=== PATIENT | female | born 1950 | race Caucasian/White ===

== ENCOUNTER 2017-04-29 11:51 | Emergency (ER) | payer BC, MEDICARE ==
[2017-04-29] MEDS ORDERED: SODIUM CHLORIDE 0.9% 1,000 ML IV STA ×2 (11:57)
[2017-04-29] MEDS ORDERED: RX INFO: IV CONTRAST WAS GIVEN 1 EACH MISC MISCELLANE PRN (11:57)
[2017-04-29 12:20] LABS: Glucose,Whole Blood 104 mg/dL (75-99)
[2017-04-29 12:33] LABS: Basophils # (A) 0.1 k/uL (0-0.2); Basophils % (A) 1 %; Eosinophils # (A) 0.3 k/uL (0-0.7); Eosinophils % (A) 4 %; HCT 42.7 % (34.0-46.0); HGB 14.5 gm/dL (11.4-16.0); Lymphocytes # (A) 2.2 k/uL (1.0-4.8); Lymphocytes % (A) 29 %; MCH 29.9 pg (25.0-35.0); MCHC 33.9 g/dL (31.0-37.0); MCV 88.2 fL (80.0-100.0); Mean Platelet Volume 6.6; Monocytes # (A) 0.3 k/uL (0-1.0); Monocytes % (A) 4 %; Neutrophils # (A) 4.6 k/uL (1.3-7.7); Neutrophils % (A) 60 %; Platelet Count 355 k/uL (150-450); RBC 4.84 m/uL (3.80-5.40); RDW 12.8 % (11.5-15.5); WBC 7.6 k/uL (3.8-10.6)
[2017-04-29 12:40] LABS: ALT 37 U/L (9-52); AST 36 U/L (14-36); Albumin 4.6 g/dL (3.5-5.0); Alkaline Phosphatase 101 U/L (38-126); Anion Gap 14 mmol/L; Blood Urea Nitrogen 10 mg/dL (7-17); Calcium 9.7 mg/dL (8.4-10.2); Carbon Dioxide 25 mmol/L (22-30); Chloride 104 mmol/L (98-107); Glucose 98 mg/dL (74-99); Sodium 143 mmol/L (137-145); Total Bilirubin 0.7 mg/dL (0.2-1.3); Total Protein 7.4 g/dL (6.3-8.2)
--- NOTE | 2017-04-29 12:45 | ED ---
General Adult HPI - General Chief complaint: Fall Stated complaint: Fall-Head Injury Time Seen by Provider: 04/29/17 11:57 Source: patient, RN notes reviewed, old records reviewed Mode of arrival: EMS Limitations: no limitations - History of Present Illness Initial comments: This is a 66-year-old female to the ER for evaluation. Patient brought in for evaluation regarding head injury. Patient denies blood thinners. This was out for a walk with friend, she is on the ice to backwards hitting the back of her head. Positive loss of consciousness. Patient states that she has mild amnesia around the event. Patient currently is awake and alert and knows where she is. History also obtained from patient's friend who is at bedside - Related Data Home Medications Medication Instructions Recorded Confirmed Cholecalciferol [Vitamin D3] 1,000 unit PO HS 04/29/17 04/29/17 Multivitamins, Thera [Multivitamin 1 tab PO HS 04/29/17 04/29/17 (formulary)] Omeprazole Magnesium [PriLOSEC OTC] 20 mg PO DAILY 04/29/17 04/29/17 Allergies Allergy/AdvReac Type Severity Reaction Status Date / Time No Known Allergies Allergy Verified 04/29/17 12:37 Review of Systems ROS Statement: Those systems with pertinent positive or pertinent negative responses have been documented in the HPI. ROS Other: All systems not noted in ROS Statement are negative. Past Medical History Additional Past Medical History / Comment(s): irreg heart rate at times per pt History of Any Multi-Drug Resistant Organisms: None Reported Past Surgical History: Cholecystectomy, Orthopedic Surgery Additional Past Surgical History / Comment(s): shoulder Smoking Status: Never smoker Past Alcohol Use History: None Reported Past Drug Use History: None Reported General Exam Limitations: no limitations General appearance: alert, in no apparent distress Head exam: Present: atraumatic, normocephalic, normal inspection Eye exam: Present: normal appearance, PERRL, EOMI. Absent: scleral icterus, conjunctival injection, periorbital swelling ENT exam: Present: normal exam, mucous membranes moist Neck exam: Present: normal inspection. Absent: tenderness, meningismus, lymphadenopathy Respiratory exam: Present: normal lung sounds bilaterally. Absent: respiratory distress, wheezes, rales, rhonchi, stridor Cardiovascular Exam: Present: regular rate, normal rhythm, normal heart sounds. Absent: systolic murmur, diastolic murmur, rubs, gallop, clicks GI/Abdominal exam: Present: soft, normal bowel sounds. Absent: distended, tenderness, guarding, rebound, rigid Extremities exam: Present: normal inspection, full ROM, normal capillary refill. Absent: tenderness, pedal edema, joint swelling, calf tenderness Back exam: Present: normal inspection Neurological exam: Present: alert, oriented X3, CN II-XII intact Psychiatric exam: Present: normal affect, normal mood Skin exam: Present: warm, dry, intact, normal color. Absent: rash Course Vital Signs 04/29/17 04/29/17 04/29/17 11:59 13:21 14:38 Temperature 97.8 F 98.4 F Pulse Rate 109 H 93 89 Respiratory 18 17 16 Rate Blood Pressure 188/80 137/76 152/67 O2 Sat by Pulse 96 99 97 Oximetry - Reevaluation(s) Reevaluation #1: Patient is without event or complaints here in the emergency room EKG Findings - EKG Comments: EKG Findings:: EKG shows sinus rhythm rate of 86, pO2 12, QRS 84, QTC 457 Medical Decision Making - Medical Decision Making 66 female the ER for evaluation of syncopal event with fall and head injury. Patient is multiple imaging done including CTA CT brain chest x-ray labwork are all negative. - Lab Data Result diagrams: 04/29/17 12:17 04/29/17 12:17 Lab Results 04/29/17 04/29/17 04/29/17 Range/Units 12:01 12:17 12:17 WBC 7.6 (3.8-10.6) k/uL RBC 4.84 (3.80-5.40) m/uL Hgb 14.5 (11.4-16.0) gm/dL Hct 42.7 (34.0-46.0) % MCV 88.2 (80.0-100.0) fL MCH 29.9 (25.0-35.0) pg MCHC 33.9 (31.0-37.0) g/dL RDW 12.8 (11.5-15.5) % Plt Count 355 (150-450) k/uL Neutrophils % 60 % Lymphocytes % 29 % Monocytes % 4 % Eosinophils % 4 % Basophils % 1 % Neutrophils # 4.6 (1.3-7.7) k/uL Lymphocytes # 2.2 (1.0-4.8) k/uL Monocytes # 0.3 (0-1.0) k/uL Eosinophils # 0.3 (0-0.7) k/uL Basophils # 0.1 (0-0.2) k/uL PT (9.0-12.0) sec INR (<1.2) APTT (22.0-30.0) sec Sodium (137-145) mmol/L Potassium (3.5-5.1) mmol/L Chloride (98-107) mmol/L Carbon Dioxide (22-30) mmol/L Anion Gap mmol/L BUN (7-17) mg/dL Creatinine (0.52-1.04) mg/dL Est GFR (MDRD) Af Amer (>60 ml/min/1.73 sqM) Est GFR (MDRD) Non-Af (>60 ml/min/1.73 sqM) Glucose (74-99) mg/dL POC Glucose (mg/dL) 104 H (75-99) mg/dL POC Glu Improvement Engineer ID Jamaal Osborn Calcium (8.4-10.2) mg/dL Total Bilirubin (0.2-1.3) mg/dL AST (14-36) U/L ALT (9-52) U/L Alkaline Phosphatase (38-126) U/L Total Creatine Kinase 76 (30-135) U/L CK-MB (CK-2) 1.7 (0.0-2.4) ng/mL CK-MB (CK-2) Rel Index 2.2 Troponin I <0.012 (0.000-0.034) ng/mL Total Protein (6.3-8.2) g/dL Albumin (3.5-5.0) g/dL Urine Color Urine Appearance (Clear) Urine pH (5.0-8.0) Ur Specific [place] (1.001-1.035) Urine Protein (Negative) Urine Glucose (UA) (Negative) Urine Ketones (Negative) Urine Blood (Negative) Urine Nitrite (Negative) Urine Bilirubin (Negative) Urine Urobilinogen (<2.0) mg/dL Ur Leukocyte Esterase (Negative) 01/29/18 01/29/18 01/29/18 Range/Units 12:17 12:17 13:40 WBC (3.8-10.6) k/uL RBC (3.80-5.40) m/uL Hgb (11.4-16.0) gm/dL Hct (34.0-46.0) % MCV (80.0-100.0) fL MCH (25.0-35.0) pg MCHC (31.0-37.0) g/dL RDW (11.5-15.5) % Plt Count (150-450) k/uL Neutrophils % % Lymphocytes % % Monocytes % % Eosinophils % % Basophils % % Neutrophils # (1.3-7.7) k/uL Lymphocytes # (1.0-4.8) k/uL Monocytes # (0-1.0) k/uL Eosinophils # (0-0.7) k/uL Basophils # (0-0.2) k/uL PT 9.7 (9.0-12.0) sec INR 1.0 (<1.2) APTT 22.9 (22.0-30.0) sec Sodium 143 (137-145) mmol/L Potassium 4.0 (3.5-5.1) mmol/L Chloride 104 (98-107) mmol/L Carbon Dioxide 25 (22-30) mmol/L Anion Gap 14 mmol/L BUN 10 (7-17) mg/dL Creatinine 0.70 (0.52-1.04) mg/dL Est GFR (MDRD) Af Amer >60 (>60 ml/min/1.73 sqM) Est GFR (MDRD) Non-Af >60 (>60 ml/min/1.73 sqM) Glucose 98 (74-99) mg/dL POC Glucose (mg/dL) (75-99) mg/dL POC Glu Improvement Engineer ID Calcium 9.7 (8.4-10.2) mg/dL Total Bilirubin 0.7 (0.2-1.3) mg/dL AST 36 (14-36) U/L ALT 37 (9-52) U/L Alkaline Phosphatase 101 (38-126) U/L Total Creatine Kinase (30-135) U/L CK-MB (CK-2) (0.0-2.4) ng/mL CK-MB (CK-2) Rel Index Troponin I (0.000-0.034) ng/mL Total Protein 7.4 (6.3-8.2) g/dL Albumin 4.6 (3.5-5.0) g/dL Urine Color Light Yellow Urine Appearance Clear (Clear) Urine pH 6.5 (5.0-8.0) Ur Specific [place] 1.022 (1.001-1.035) Urine Protein Negative (Negative) Urine Glucose (UA) Negative (Negative) Urine Ketones Negative (Negative) Urine Blood Negative (Negative) Urine Nitrite Negative (Negative) Urine Bilirubin Negative (Negative) Urine Urobilinogen <2.0 (<2.0) mg/dL Ur Leukocyte Esterase Negative (Negative) Disposition Clinical Impression: Fall, Head injury Disposition: HOME SELF-CARE Condition: Good Instructions: Concussion (ED), Head Injury (ED) Referrals: Nguyen Calhoun DO [Primary Care Provider] - 1-2 days
[2017-04-29 12:46] LABS: Partial Thromboplastin Time 22.9 sec (22.0-30.0); Prothrombin Time 9.7 sec (9.0-12.0)
[2017-04-29 12:57] LABS: Creatine Kinase 76 U/L (30-135)
[2017-04-29 13:09] LABS: Creatine Kinase MB 1.7 ng/mL (0.0-2.4)
--- NOTE | 2017-04-29 13:15 | CT ---
EXAMINATION TYPE: CT brain wo con for TPA DATE OF EXAM: 04/29/2017 HISTORY: Neurodeficits per order. CT DLP: Automated Exposure Control for Dose Reduction was Utilized. TECHNIQUE: CT scan of the head is performed without contrast. COMPARISON: None. FINDINGS: There is no acute intracranial hemorrhage or midline shift identified. There is diffuse v entricular and sulcal prominence consistent with diffuse age-related cerebral atrophy. There is low- attenuation in the periventricular white matter consistent with chronic small vessel ischemic change. The globes are intact and the visualized sinuses are clear. IMPRESSION: No acute intracranial hemorrhage or midline shift. There is mild diffuse age-related ce rebral atrophy noted.
[2017-04-29 13:27] LABS: Troponin I <0.012 ng/mL (0.000-0.034)
--- NOTE | 2017-04-29 13:47 | CT ---
EXAMINATION TYPE: CT angio head neck DATE OF EXAM: 04/29/2017 HISTORY: Memory loss and weakness COMPARISON: NONE CT DLP: 246.8 mGycm. Automated Exposure Control for Dose Reduction was Utilized. TECHNIQUE: CTA scan of the head and neck are performed with IV Contrast, patient injected with 65 mL of Omnipaque 350, axial images are obtained, coronal and sagittal reformatted images are reviewed. T hree-D reconstructed images are created on an independent workstation and reviewed. FINDINGS: Carotid/Vascular Structures: There is minimal noncalcified plaque in aortic arch. There is normal thr ee-vessel origin from the aortic arch without significant plaque or stenosis. The right common caroti d artery shows normal origin from the right brachiocephalic artery. There is tortuous course to the p roximal to mid right common carotid artery. No significant plaque or stenosis is seen including at le trent of right carotid bulb. Remainder of right internal carotid artery shows no significant plaque or stenosis. There is patent right external carotid artery without significant plaque or stenosis. There is tortuous course to the left common carotid artery without significant plaque or stenosis inc luding the carotid bulb. There is patent external carotid artery without significant plaque or stenos is. Left internal carotid artery shows no significant plaque or stenosis. There is dominant left vertebral artery. Vertebral arteries are patent to basilar junction. There is no significant focal stenosis or interval change in the posterior circulation. There are hypoplastic posterior communicating arteries felt present bilaterally. Images of the anterior circulation show pa tent small segment anterior communicating artery without significant stenosis or aneurysmal change. Other: There is mild underlying emphysematous change. There is moderate posterior biapical pleural/pa renchymal scarring. There is subcentimeter scar opacity right upper lung axial image 15. There is mil d to moderate disc space narrowing with grade 1 retrolisthesis of C5 on C6. IMPRESSION: 1. No significant focal stenosis in common or internal carotid arteries bilaterally. 2. No aneurysmal change or significant stenosis at level of clark's point of [place].
[2017-04-29] MEDS ORDERED: MORPHINE SULFATE 2 MG/ML SYRINGE IVP ONE (13:48)
[2017-04-29] MEDS ORDERED: ONDANSETRON 4 MG/2 ML VIAL IVP STA (13:58)
[2017-04-29 14:04] LABS: Appearance,Urine Clear (Clear); Bilirubin,Urine Negative (Negative); Blood,Urine Negative (Negative); Color,Urine Light Yellow; Glucose,Urine (UA) Negative (Negative); Ketones,Urine Negative (Negative); Leukocyte Esterase,Urine Negative (Negative); Nitrite,Urine Negative (Negative); PH, Urine 6.5 (5.0-8.0); Protein,Urine Negative (Negative); Specific Gravity,Urine 1.022 (1.001-1.035); Urobilinogen,Urine <2.0 mg/dL (<2.0)
[2017-04-29 14:39] VITALS: BP 152/67; PULSE 89; RESP 16; TEMP 98.4
== END 2017-04-29 14:39 | disposition home or self-care (01) ==
LOC: EC 11:51
DX: S09.90XA Unspecified injury of head, initial encounter (principal); Z79.899 Other long term (current) drug therapy; W00.0XXA Fall on same level due to ice and snow, initial encounter; Y93.01 Activity, walking, marching and hiking; Y92.89 Other specified places as the place of occurrence of the external cause
CPT/HCPCS: 99285 ×2; 96374 ×2; 96375 ×2; 96361 ×2; 36415; 93005; 80053; 82550; 82553; 84484; 85025; 85610; 85730; 81003; 70496; 70450; 70498; Q9967; J2405; J2270

== ENCOUNTER 2019-04-13 07:30 | Emergency (ER) | payer MEDICARE ==
[2019-04-13 07:48] VITALS: TEMP 98
--- NOTE | 2019-04-13 08:06 | ED ---
General Adult HPI - General Chief complaint: Urogenital Stated complaint: blood in urine/poss uti Time Seen by Provider: 04/13/19 07:50 Source: patient, family, RN notes reviewed Mode of arrival: ambulatory Limitations: no limitations - History of Present Illness Initial comments: Patient is a pleasant 68-year-old female presenting to the emergency Department with dysuria. Onset of symptoms was yesterday. Patient did have similar symptoms once years ago associated with urinary tract infection. Patient has urinary frequency and urgency. Patient also is only urinating small amounts. Patient has noticed some hematuria this morning. Patient has mild suprapubic discomfort, no back pain. No nausea vomiting. No fever. - Related Data Home Medications Medication Instructions Recorded Confirmed Cholecalciferol [Vitamin D3] 1,000 unit PO HS 04/29/17 04/29/17 Multivitamins, Thera [Multivitamin 1 tab PO HS 04/29/17 04/29/17 (formulary)] Omeprazole Magnesium [PriLOSEC OTC] 20 mg PO DAILY 04/29/17 04/29/17 Previous Rx's Medication Instructions Recorded Phenazopyridine [Pyridium] 100 mg PO TID PRN #5 tablet 04/13/19 Sulfamethox-Tmp 800-160Mg [Bactrim 1 each PO Q12HR #19 tab 04/13/19 DS 800-160 mg] Allergies Allergy/AdvReac Type Severity Reaction Status Date / Time No Known Allergies Allergy Verified 04/13/19 07:43 Review of Systems ROS Statement: Those systems with pertinent positive or pertinent negative responses have been documented in the HPI. ROS Other: All systems not noted in ROS Statement are negative. Constitutional: Denies: fever Gastrointestinal: Reports: as per HPI. Denies: nausea, vomiting Past Medical History Additional Past Medical History / Comment(s): irreg heart rate at times per pt History of Any Multi-Drug Resistant Organisms: None Reported Past Surgical History: Appendectomy, Cholecystectomy, Orthopedic Surgery Additional Past Surgical History / Comment(s): shoulder Past Psychological History: No Psychological Hx Reported Smoking Status: Never smoker Past Alcohol Use History: None Reported Past Drug Use History: None Reported General Exam Limitations: no limitations General appearance: alert, in no apparent distress Head exam: Present: normocephalic Eye exam: Present: normal appearance Neck exam: Present: normal inspection Respiratory exam: Present: normal lung sounds bilaterally Cardiovascular Exam: Present: regular rate, normal rhythm Expanded Peripheral pulses: 2+: Posterior Tibialis (R), Posterior Tibialis (L), Dorsalis Pedis (R), Dorsalis Pedis (L) GI/Abdominal exam: Present: soft, tenderness (Normal suprapubic tenderness) Extremities exam: Present: normal inspection. Absent: pedal edema, calf tenderness Neurological exam: Present: alert Psychiatric exam: Present: normal affect, normal mood Skin exam: Present: normal color Course Vital Signs 04/13/19 04/13/19 04/13/19 07:44 07:47 08:47 Temperature 98.0 F Pulse Rate 101 H 98 Respiratory 18 20 20 Rate Blood Pressure 149/90 132/87 O2 Sat by Pulse 98 95 Oximetry 04/13/19 09:00 Temperature Pulse Rate 98 Respiratory 20 Rate Blood Pressure 132/87 O2 Sat by Pulse 95 Oximetry Medical Decision Making - Medical Decision Making Patient reevaluated and updated. - Lab Data Lab Results 04/13/19 Range/Units 08:00 Urine Color Light Yellow Urine Appearance Clear (Clear) Urine pH 6.5 (5.0-8.0) Ur Specific [place] 1.003 (1.001-1.035) Urine Protein Negative (Negative) Urine Glucose (UA) Negative (Negative) Urine Ketones Negative (Negative) Urine Blood Large H (Negative) Urine Nitrite Negative (Negative) Urine Bilirubin Negative (Negative) Urine Urobilinogen <2.0 (<2.0) mg/dL Ur Leukocyte Esterase Large H (Negative) Urine RBC 3 (0-5) /hpf Urine WBC 170 H (0-5) /hpf Ur Squamous Epith Cells <1 (0-4) /hpf Urine Bacteria Occasional H (None) /hpf Urine Mucus Rare H (None) /hpf Disposition Clinical Impression: Urinary tract infection Disposition: HOME SELF-CARE Condition: Stable Instructions (If sedation given, give patient instructions): Urinary Tract Infection in Women (ED) Additional Instructions: Please follow-up with primary care physician in the next couple days for recheck. Return for fevers, persistent vomiting, increased pain, worsening symptoms, increased bleeding, or other concerns. [facility] Prescriptions: Sulfamethox-Tmp 800-160Mg [Bactrim DS 800-160 mg] 1 each PO Q12HR #19 tab Phenazopyridine [Pyridium] 100 mg PO TID PRN #5 tablet PRN Reason: Per Protocol Is patient prescribed a controlled substance at d/c from ED?: No Referrals: Nguyen Calhoun DO [Primary Care Provider] - 1-2 days Time of Disposition: 09:17
[2019-04-13 08:11] VITALS: RESP 20
[2019-04-13 08:27] LABS: Appearance,Urine Clear (Clear); Bacteria,Urine Occasional /hpf; Bilirubin,Urine Negative (Negative); Blood,Urine Large (Negative); Color,Urine Light Yellow; Glucose,Urine (UA) Negative (Negative); Ketones,Urine Negative (Negative); Leukocyte Esterase,Urine Large (Negative); Mucus,Urine Rare /hpf; Nitrite,Urine Negative (Negative); PH, Urine 6.5 (5.0-8.0); Protein,Urine Negative (Negative); RBC,Urine 3 /hpf (0-5); Specific Gravity,Urine 1.003 (1.001-1.035); Squamous Epithelial Cell,Urine <1 /hpf (0-4); Urobilinogen,Urine <2.0 mg/dL (<2.0); WBC,Urine 170 /hpf (0-5)
[2019-04-13] MEDS ORDERED: PHENAZOPYRIDINE 200 MG TAB PO STA (09:14)
[2019-04-13] MEDS ORDERED: SULFAMETHOX-TMP 800-160MG 1 EACH TAB PO STA (09:14)
[2019-04-13 10:31] VITALS: BP 125/81; PULSE 92
== END 2019-04-13 10:35 | disposition home or self-care (01) ==
LOC: EC 07:30
DX: N39.0 Urinary tract infection, site not specified (principal); Z79.899 Other long term (current) drug therapy; Z90.49 Acquired absence of other specified parts of digestive tract
CPT/HCPCS: 81001; 87086; 99283

== ENCOUNTER 2021-08-11 15:48 | Emergency (ER) | payer MEDICARE ==
--- NOTE | 2021-08-11 19:34 | ED ---
Dizziness HPI - General Chief Complaint: Shortness of Breath Stated Complaint: Increased Heart Rate Time Seen by Provider: 08/11/21 19:12 Source: patient, RN notes reviewed Mode of arrival: ambulatory Limitations: no limitations - History of Present Illness Initial Comments: This is a pleasant 70-year-old female with a history of acid reflux. Patient states she was outside doing some gardening at about 3 PM. Patient states she started feeling lightheaded and started feeling a bit out of sorts. She will get her apple once and noticed that she was having tachycardia into the 150s. Patient states she did this. Some palpitations. Denies any overt chest pain but did have some "tightness." Patient states that she had been hydrating appropriately. Patient denies cough. She denies any symptoms prior to this. No mobilization. States that she feels somewhat better now but heart rate is still above 100. No history of cardiac or pulmonary disease. Nonsmoker. No caffeine or stimulant intake. No headache, no fever or chills, no changes in vision or hearing, no sore throat or difficulty with speech, no neck pain, no chest pain or shortness of breath, no abdominal pain, no nausea or vomiting, no changes in urination or bowel movements, no numbness or tingling, no extremity pain, no skin rashes or lesions. MD Complaint: lightheadedness - Related Data Home Medications Medication Instructions Recorded Confirmed Omeprazole Magnesium [PriLOSEC OTC] 20 mg PO DAILY 04/29/17 08/11/21 Allergies Allergy/AdvReac Type Severity Reaction Status Date / Time No Known Allergies Allergy Verified 08/11/21 21:19 Review of Systems ROS Statement: Those systems with pertinent positive or pertinent negative responses have been documented in the HPI. ROS Other: All systems not noted in ROS Statement are negative. Past Medical History Past Medical History: No Reported History Additional Past Medical History / Comment(s): concussion History of Any Multi-Drug Resistant Organisms: None Reported Past Surgical History: Appendectomy, Cholecystectomy, Orthopedic Surgery Additional Past Surgical History / Comment(s): shoulder Past Psychological History: No Psychological Hx Reported Smoking Status: Never smoker Past Alcohol Use History: None Reported Past Drug Use History: None Reported General Exam Limitations: no limitations General appearance: alert, in no apparent distress Head exam: Present: atraumatic, normocephalic, normal inspection Eye exam: Present: normal appearance, PERRL, EOMI. Absent: scleral icterus, conjunctival injection, periorbital swelling ENT exam: Present: normal exam, normal oropharynx, mucous membranes moist, TM's normal bilaterally, normal external ear exam. Absent: mucous membranes dry Neck exam: Present: normal inspection, full ROM. Absent: tenderness, meningismus, lymphadenopathy Respiratory exam: Present: normal lung sounds bilaterally. Absent: respiratory distress, wheezes, rales, rhonchi, stridor Cardiovascular Exam: Present: regular rate, normal rhythm, tachycardia (104 bpm as I'm assessing the patient.), normal heart sounds. Absent: systolic murmur, diastolic murmur, rubs, gallop, clicks GI/Abdominal exam: Present: soft, normal bowel sounds. Absent: distended, tenderness, guarding, rebound, rigid Extremities exam: Present: normal inspection, full ROM, normal capillary refill. Absent: tenderness, pedal edema, joint swelling, calf tenderness Back exam: Present: normal inspection Neurological exam: Present: alert, oriented X3, CN II-XII intact Psychiatric exam: Present: normal affect, normal mood Skin exam: Present: warm, dry, intact, normal color. Absent: rash Course Vital Signs 08/11/21 08/11/21 08/11/21 16:04 19:48 21:00 Temperature 98.2 F Pulse Rate 124 H 87 82 Respiratory 18 16 16 Rate Blood Pressure 158/76 180/103 166/87 O2 Sat by Pulse 95 98 98 Oximetry 08/11/21 22:00 Temperature Pulse Rate 84 Respiratory 16 Rate Blood Pressure 171/94 O2 Sat by Pulse 98 Oximetry - Reevaluation(s) Reevaluation #1: 08/11/21 21:34 Medical record is reviewed Symptoms are improved, patient no longer sensing a racing heartbeat. Patient is informed of results and questions answered Patient in no distress Reevaluation #2: 08/11/21 23:00 Medical record is reviewed Symptoms are improved here in the emergency department Patient is informed of results and questions answered Patient in no distress Patient now adding that she has a rather severe headache. When questioned, patient states this actually started a bit around the time of the other symptoms but now has become more severe. Patient states she does get headaches this severe occasionally. The fact the patient has other symptomology. Going to obtain a CT and CTA of the brain. the patient is neurologically intact. NIH score is 0. The patient is adding to the history stating that the symptoms all seemed to start when she was bending over. Reevaluation #3: 08/12/21 00:10 Patient improved. Patient hemodynamically stable. Does have elevated blood pressure. We'll have her follow up with regular physician. EKG Findings - EKG Comments: EKG Findings:: EKG done at 1611 read by the ED attending physician reveals sinus tachycardia with a rate of 114. Normal intervals. Normal axis. No acute ST or T-wave changes. There is an RSR pattern in V1 and V2 consistent with possible right ventricular conduction delay. Medical Decision Making - Medical Decision Making Patient was working out side on the first relatively warm day of the year. Patient became lightheaded. Certainly the patient could have some mild heat exh austion. The patient was also experiencing palpitations and was tachycardic greater than 120 bpm on arrival here. Cardiopulmonary evaluation initiated. We'll also add in a d-dimer as patient is PERC 1. - Lab Data Result diagrams: 08/11/21 19:45 08/11/21 19:45 Lab Results 08/11/21 08/11/21 08/11/21 Range/Units 19:45 19:45 19:45 WBC 10.8 H (3.8-10.6) k/uL RBC 5.03 (3.80-5.40) m/uL Hgb 15.0 (11.4-16.0) gm/dL Hct 44.4 (34.0-46.0) % MCV 88.3 (80.0-100.0) fL MCH 29.9 (25.0-35.0) pg MCHC 33.8 (31.0-37.0) g/dL RDW 13.6 (11.5-15.5) % Plt Count 378 (150-450) k/uL MPV 7.0 Neutrophils % 66 % Lymphocytes % 24 % Monocytes % 4 % Eosinophils % 3 % Basophils % 0 % Neutrophils # 7.1 (1.3-7.7) k/uL Lymphocytes # 2.6 (1.0-4.8) k/uL Monocytes # 0.5 (0-1.0) k/uL Eosinophils # 0.3 (0-0.7) k/uL Basophils # 0.1 (0-0.2) k/uL PT 10.2 (9.0-12.0) sec INR 0.9 (<1.2) APTT 22.9 (22.0-30.0) sec D-Dimer 0.24 (<0.60) mg/L FEU Sodium 140 (137-145) mmol/L Potassium 3.9 (3.5-5.1) mmol/L Chloride 105 (98-107) mmol/L Carbon Dioxide 26 (22-30) mmol/L Anion Gap 9 mmol/L BUN 15 (7-17) mg/dL Creatinine 0.74 (0.52-1.04) mg/dL Est GFR (CKD-EPI)AfAm >90 (>60 ml/min/1.73 sqM) Est GFR (CKD-EPI)NonAf 84 (>60 ml/min/1.73 sqM) Glucose 109 H (74-99) mg/dL Calcium 9.6 (8.4-10.2) mg/dL Magnesium 1.9 (1.6-2.3) mg/dL Total Bilirubin 0.7 (0.2-1.3) mg/dL AST 25 (14-36) U/L ALT 22 (4-34) U/L Alkaline Phosphatase 100 (38-126) U/L Troponin I (0.000-0.034) ng/mL NT-Pro-B Natriuret Pep pg/mL Total Protein 7.3 (6.3-8.2) g/dL Albumin 4.7 (3.5-5.0) g/dL 08/11/21 08/11/21 Range/Units 19:45 19:45 WBC (3.8-10.6) k/uL RBC (3.80-5.40) m/uL Hgb (11.4-16.0) gm/dL Hct (34.0-46.0) % MCV (80.0-100.0) fL MCH (25.0-35.0) pg MCHC (31.0-37.0) g/dL RDW (11.5-15.5) % Plt Count (150-450) k/uL MPV Neutrophils % % Lymphocytes % % Monocytes % % Eosinophils % % Basophils % % Neutrophils # (1.3-7.7) k/uL Lymphocytes # (1.0-4.8) k/uL Monocytes # (0-1.0) k/uL Eosinophils # (0-0.7) k/uL Basophils # (0-0.2) k/uL PT (9.0-12.0) sec INR (<1.2) APTT (22.0-30.0) sec D-Dimer (<0.60) mg/L FEU Sodium (137-145) mmol/L Potassium (3.5-5.1) mmol/L Chloride (98-107) mmol/L Carbon Dioxide (22-30) mmol/L Anion Gap mmol/L BUN (7-17) mg/dL Creatinine (0.52-1.04) mg/dL Est GFR (CKD-EPI)AfAm (>60 ml/min/1.73 sqM) Est GFR (CKD-EPI)NonAf (>60 ml/min/1.73 sqM) Glucose (74-99) mg/dL Calcium (8.4-10.2) mg/dL Magnesium (1.6-2.3) mg/dL Total Bilirubin (0.2-1.3) mg/dL AST (14-36) U/L ALT (4-34) U/L Alkaline Phosphatase (38-126) U/L Troponin I <0.012 (0.000-0.034) ng/mL NT-Pro-B Natriuret Pep 36 pg/mL Total Protein (6.3-8.2) g/dL Albumin (3.5-5.0) g/dL - Radiology Data Radiology results: report reviewed, image reviewed Disposition Clinical Impression: Heat exhaustion, Sinus tachycardia, Elevated blood pressure reading, Headache Disposition: HOME SELF-CARE Condition: Stable Instructions (If sedation given, give patient instructions): Heat Exhaustion (E D), Hypertension (ED), DASH Eating Plan (ED) Is patient prescribed a controlled substance at d/c from ED?: No Referrals: Jennyfer Zhang DO [Primary Care Provider] - 1-2 days Time of Disposition: 00:11
[2021-08-11 19:49] VITALS: RESP 16
[2021-08-11 19:53] LABS: Basophils # (A) 0.1 k/uL (0-0.2); Basophils % (A) 0 %; Eosinophils # (A) 0.3 k/uL (0-0.7); Eosinophils % (A) 3 %; HCT 44.4 % (34.0-46.0); Lymphocytes # (A) 2.6 k/uL (1.0-4.8); Lymphocytes % (A) 24 %; MCH 29.9 pg (25.0-35.0); MCHC 33.8 g/dL (31.0-37.0); MCV 88.3 fL (80.0-100.0); Monocytes # (A) 0.5 k/uL (0-1.0); Monocytes % (A) 4 %; Neutrophils # (A) 7.1 k/uL (1.3-7.7); Neutrophils % (A) 66 %; Platelet Count 378 k/uL (150-450); RBC 5.03 m/uL (3.80-5.40); RDW 13.6 % (11.5-15.5); WBC 10.8 k/uL (3.8-10.6)
[2021-08-11 20:08] LABS: INR 0.9 (<1.2); Partial Thromboplastin Time 22.9 sec (22.0-30.0); Prothrombin Time 10.2 sec (9.0-12.0)
[2021-08-11 20:22] LABS: ALT 22 U/L (4-34); AST 25 U/L (14-36); African American GFR (CKD) >90 (>60 ml/min/1.73 sqM); Albumin 4.7 g/dL (3.5-5.0); Alkaline Phosphatase 100 U/L (38-126); Anion Gap 9 mmol/L; Blood Urea Nitrogen 15 mg/dL (7-17); Calcium 9.6 mg/dL (8.4-10.2); Carbon Dioxide 26 mmol/L (22-30); Chloride 105 mmol/L (98-107); Glucose 109 mg/dL (74-99); Magnesium 1.9 mg/dL (1.6-2.3); Non-African American GFR(CKD) 84 (>60 ml/min/1.73 sqM); Potassium 3.9 mmol/L (3.5-5.1); Sodium 140 mmol/L (137-145); Total Bilirubin 0.7 mg/dL (0.2-1.3); Total Protein 7.3 g/dL (6.3-8.2)
--- NOTE | 2021-08-11 20:36 | XR ---
EXAMINATION TYPE: XR chest 2V DATE OF EXAM: 08/11/2021 COMPARISON: 03/08/2016 HISTORY: Chest pain TECHNIQUE: FINDINGS: Heart and mediastinum are normal. Lungs are clear. Diaphragm is normal. Bony thorax is inta ct. There are chest leads. IMPRESSION: Normal chest. No change.
[2021-08-11] MEDS ORDERED: SODIUM CHLORIDE 0.9% 1,000 ML IV ONE (21:34)
--- NOTE | 2021-08-11 23:57 | CT ---
EXAMINATION TYPE: CT angio head neck DATE OF EXAM: 08/11/2021 COMPARISON: None HISTORY: newly onset headache CT DLP: 744 mGycm Automated exposure control for dose reduction was used. CONTRAST: Performed with IV Contrast, patient injected with 65 ML mL of Isovue 370. Images obtained from the thoracic inlet to the vertex of the brain with IV contrast. There are Three- D postprocessed images. There is some mild pleural thickening at the lung apices bilaterally. There appears to be normal branching pattern of the great vessels on the aortic arch. There is arteri al flow in both subclavian arteries. There is arterial flow in the common internal and external carot id arteries bilaterally. There is arterial flow in both vertebral arteries. There is wide patency of the carotid artery bifurcations. There is no evidence of carotid or vertebral artery aneurysm or diss ection. There is arterial flow in the vertebrobasilar artery system. There is arterial flow in the anterior middle and posterior cerebral arteries. No mass effect. No fe dence of intracranial aneurysm or neovascularity. There is normal enhancement of the venous sinuses. No evidence of hemodynamic stenosis. There is mucus retention cyst right maxillary sinus. IMPRESSION: Negative CT angiogram of the neck. Negative CT angiogram of the brain.
--- NOTE | 2021-08-11 23:59 | CT ---
EXAMINATION TYPE: CT brain wo con DATE OF EXAM: 08/11/2021 COMPARISON: 04/05/2021 HISTORY: newly onset headache CT DLP: 744 mGycm Automated exposure control for dose reduction was used. Ventricles of normal size. No mass effect or midline shift. There is no sign of intracranial hemorrha ge. Calvarium is intact. There is normal aeration of the mastoid sinuses. IMPRESSION: Negative CT scan of the brain. No change.
[2021-08-12] MEDS ORDERED: ACETAMINOPHEN TAB 500 MG TAB PO STA (00:10)
[2021-08-12 00:53] VITALS: BP 179/92; PULSE 83; TEMP 98.3
== END 2021-08-12 00:30 | disposition home or self-care (01) ==
LOC: EC 15:48
DX: T67.5XXA Heat exhaustion, unspecified, initial encounter (principal); R00.0 Tachycardia, unspecified; R03.0 Elevated blood-pressure reading, without diagnosis of hypertension; R42 Dizziness and giddiness; R51.9 Headache, unspecified; K21.9 Gastro-esophageal reflux disease without esophagitis; Z79.899 Other long term (current) drug therapy
CPT/HCPCS: 36415; 85379; 83880; 80053; 83735; 84484; 85025; 85610; 85730; 71046; 70496; 70450; 70498; 99285; 96360; Q9967